=== PATIENT | male | born 1945 | race Caucasian/White ===

== ENCOUNTER → 2018-01-03 | Outpatient (CLI) | payer OTHER ==
[~2018-01-03] MED LIST: FELO5TAB PO; FRS/40 PO; IPRA-64 INH; LEVO50TA6 PO; LISI40TA PO; METO-217 PO; OXGN; SIMV40TA2 PO; WARF4TAB8 PO
[2018-01-03 11:59] LABS: BASO % 0.3 %; BASO ABS # 0.02 K/uL (0-0.2); EOS % 4.3 %; EOS ABS # 0.28 K/uL (0-0.5); HEMATOCRIT 45.7 % (42-52); HEMOGLOBIN 15.1 g/dL (14.0-18.0); IG# 0.03 K/uL (0.00-0.02); LYMPH % 17.2 %; LYMPH ABS # 1.12 K/uL (1.2-3.4); MEAN CORPUSCULAR HEMOGLOBIN 31.1 pg (25-34); MONO % 13.9 %; MONO ABS # 0.91 K/uL (0.11-0.59); NEUT % 63.8 %; NEUT ABS # 4.17 K/uL (1.4-6.5); PLATELET COUNT 189 K/uL (130-400); RED CELL DISTRIBUTION WIDTH CV 15.7 % (11.5-14.5); RED CELL DISTRIBUTION WIDTH SD 53.8 fL (36.4-46.3); WHITE BLOOD COUNT 6.53 K/uL (4.8-10.8)
[2018-01-03 12:08] LABS: INR 2.3 (0.9-1.1); PTT PATIENT 40.1 SECONDS (21.0-31.0)
[2018-01-03 12:31] LABS: HEMOGLOBIN A1C 6.3 % (4.5-5.6)
[2018-01-03 12:42] LABS: BLOOD UREA NITROGEN 26 mg/dl (7-18); CALCIUM 8.3 mg/dl (8.5-10.1); CARBON DIOXIDE 28 mmol/L (21-32); CREATININE 1.66 mg/dl (0.60-1.40); GLUCOSE 86 mg/dl (70-99); POTASSIUM 4.3 mmol/L (3.5-5.1); SODIUM 137 mmol/L (136-145)
== END | disposition home or self-care (01) ==
LOC: C.LAB 08:00
PROVIDERS: ATTEND Orthopaedic Surgery
DX: Z01.818 Encounter for other preprocedural examination (principal)

== ENCOUNTER 2021-12-13 17:40 | Observation (INO) ==
--- NOTE | 2021-12-13 17:50 | ED Triage Note ---
Date of Service December 13, 2021 History of Present Illness This patient was briefly evaluated while in triage. An abbreviated physical exam was performed. This patient is a 76-year-old Male with cough and dyspnea since saturday. No chest pain. Hx COPD. Physical Exam GENERAL: 76 year old male. In no acute distress. He is coughing. SKIN: No lesions or rashes. HEART: Irregular rate and rhythm. LUNGS: Clear to auscultation. ABDOMEN: Bowel sounds normoactive. No guarding or rigidity. No tenderness of palpation. NEURO: Alert and oriented. No deficits. MUSCULOSKELETAL: No deformities to inspection of the extremities. Bilat ext edema noted. PSYCH: Patient is pleasant and answers all questions appropriately. Initial orders for labs and / or imaging were placed and patient was placed in the waiting area until a bed is available. Please see further documentation for the full ED course.
[2021-12-13 18:26] LABS: Basophils # (auto) 0.04 K/uL (0-0.2); Basophils % (auto) 0.8 %; Eosinophils # (auto) 0.35 K/uL (0-0.50); Eosinophils % (auto) 6.9 %; Hematocrit (blood only) 41.9 % (40.1-51.0); Hemoglobin 13.1 g/dl (14.0-18.0); Immature Granulocytes # (auto) 0.02 K/uL (0.00-0.02); Immature Granulocytes % (auto) 0.4 %; Lymphocytes # (auto) 0.79 K/uL (1.2-3.4); Lymphocytes % (auto) 15.6 %; Mean Corpuscular Hemoglobin 29.4 pg (25.0-34.0); Mean Corpuscular Hgb Conc 31.3 g/dL (32.0-36.0); Mean Corpuscular Volume 94.2 fL (80.0-100.0); Mean Platelet Volume 10.1 fL (9.4-12.4); Monocytes # (auto) 0.95 K/uL (0.24-0.82); Monocytes % (auto) 18.7 %; Neutrophils # (auto) 2.92 K/uL (1.4-6.5); Neutrophils % (auto) 57.6 %; Platelet Count 142 K/uL (130-400); RDW Standard Deviation 65.1 fL (36.4-46.3); Red Blood Count 4.45 M/uL (4.63-6.08); White Blood Count 5.07 K/ul (4.8-10.8)
[2021-12-13 18:37] LABS: INR 1.7 (0.9-1.1); Partial Thromboplastin Ratio 1.2; Partial Thromboplastin Time 32.7 Seconds (21.0-31.0); Prothrombin Time 17.3 Seconds (9.0-12.0)
--- NOTE | 2021-12-13 18:49 | XRay Report ---
XR chest 1V portable HISTORY: Dyspnea, cough COMPARISON: None. FINDINGS: No pneumothorax. Trace right pleural effusion. The heart is mildly enlarged. There is diffu se interstitial/vascular thickening likely representing mild interstitial pulmonary edema. Hazy appea marissa to the lungs could be due to the pulmonary edema or a viral pneumonia. IMPRESSION: Cardiomegaly with mild interstitial pulmonary edema and a trace right pleural effusion. Hazy appearan ce to the lungs could be due to the suspected pulmonary edema or possibly a viral pneumonia. ACT 112: Negative or not required by law. Electronically signed by: Osei Mcdermott M.D. 12/13/2021 6:48 PM
[2021-12-13 18:50] LABS: Alanine Aminotransferase 20 U/L (7-52); Albumin Globulin Ratio 0.9 (0.9-2); Albumin Level 3.7 gm/dl (3.4-5.0); Alkaline Phosphatase 106 U/L (34-104); Anion Gap 8 (3-11); Aspartate Aminotransferase 28 U/L (13-39); BUN Creatinine Ratio 17.8 (10-20); Bilirubin,Total 0.7 mg/dl (0.2-1.0); Blood Urea Nitrogen 35 mg/dl (6-23); Calcium 8.7 mg/dl (8.5-10.1); Carbon Dioxide 26 mmol/L (21-32); Chloride 106 mmol/L (98-107); Est GFR (African American) 37.2 ml/min; Est GFR (Non-African American) 32.1 ml/min; Glucose 92 mg/dl (70-99(Fasting)); Magnesium 2.4 mg/dl (1.7-2.4); Potassium 4.9 mmol/L (3.5-5.1); Sodium 140 mmol/L (136-145); Total Protein 7.7 gm/dl (6.0-8.3)
[2021-12-13 18:55] LABS: Troponin I High Sensitivity 16.1 pg/ml (0-20)
[2021-12-13] MEDS ORDERED: BUMETANIDE 1 MG in SYRINGE 0 ML IV STA (19:07)
[2021-12-13] MEDS ORDERED: ALBUT/IPRATROP 3MG/0.5MG NEB 3 ML VIAL NEB STA (19:07)
[2021-12-13 19:24] LABS: Adenovirus PCR Not Detected (NotDetected); Bordetella parapertussis PCR Not Detected (NotDetected); Bordetella pertussis PCR Not Detected (NotDetected); Chlamydia pneumoniae PCR Not Detected (NotDetected); Coronavirus 229E PCR Not Detected (NotDetected); Coronavirus CoV-2 (COVID19)PCR Not Detected (NotDetected); Coronavirus HKU1 PCR Not Detected (NotDetected); Coronavirus NL63 PCR Not Detected (NotDetected); Coronavirus OC43PCR Not Detected (NotDetected); Human Metapneumovirus PCR Not Detected (NotDetected); Influenza A PCR Not Detected (NotDetected); Influenza B PCR Not Detected (NotDetected); Mycoplasma pneumoniae PCR Not Detected (NotDetected); Parainfluenza Virus 1 PCR Not Detected (NotDetected); Parainfluenza Virus 2 PCR Not Detected (NotDetected); Parainfluenza Virus 4 PCR Not Detected (NotDetected); Respiratory Syncytial VirusPCR Not Detected (NotDetected); Rhinovirus/Enterovirus PCR Not Detected (NotDetected)
--- NOTE | 2021-12-13 19:26 | Emergency Department Note ---
Impression & Plan SOB (shortness of breath), CHF (congestive heart failure), Fluid overload, Acute bronchitis ED Provider Note NAME: JAVIER BHATT AGE: 76 SEX: M : 1945 ARRIVES VIA: Walk-In INFORMANT: [Patient] ED PROVIDER(S): [John Means MD] CHIEF COMPLAINT: Short of breath HISTORY OF PRESENT ILLNESS: The patient is a 76-year-old male who presents with increasing dyspnea. He is at the point where he can only take a few steps and has to stop and catch his breath. The patient states that he has gained 30 pounds in about 6 weeks and his legs are much more swollen, his abdomen seems swollen. He is coughing. He cannot lay flat at nighttime. There has been no fever, no abdominal pain or chest pain. He states he is already on diuretics. The patient states he has heard himself wheeze a few times. He was told once that he might have a touch of COPD. REVIEW OF SYSTEMS: See HPI for pertinent positives and negatives. A total of ten systems were reviewed and were otherwise negative. PMHx/PSHx: See Below SOCIAL HISTORY: See Below. PHYSICAL EXAM: GENERAL: Patient is in no acute distress. HEENT: No acute trauma, normocephalic atraumatic, mucous membranes moist, no nasal congestion, no scleral icterus. NECK: No stridor, no adenopathy, no meningismus, trachea is midline. LUNGS: Moist cough noted. Diminished breath sounds bilaterally, he does have scattered crackles in both lower lungs. No obvious respiratory distress. HEART: Heart tones are distant but his rhythm seems regular, I hear no obvious murmur. Regular rate. ABDOMEN: Soft, nontender, bowel sounds positive, no peritonitis. Distended abdomen. EXTREMITIES: No cyanosis. He has moderate bilateral pedal edema, there are some chronic skin changes. NEUROLOGIC: Oriented x 3, no acute motor or sensory deficits, no focal weakness. SKIN: No rash, no jaundice, no diaphoresis. DIFFERENTIAL DIAGNOSIS: CHF, bronchitis, pneumonia, exacerbation of COPD, anemia, VT, electrolyte imbalance, fluid overload, renal or liver failure, among others. EMERGENCY DEPARTMENT COURSE/PROCEDURES: ECG: Indication was shortness of breath. The ECG shows what appears to be atrial fibrillation with a fairly regular rhythm. The rate is 76. There is an old anterior septal infarct. No ST elevation, no PVCs. The QTc is 450. Continuous Cardiac Monitoring: An order was placed for continuous cardiac monitoring. The monitor shows a rate of 69 with atrial fibrillation. MEDICAL DECISION MAKING: There is no leukocytosis. A mild anemia was noted. There was a normal platelet count. INR was elevated at 1.7 consistent with his Coumadin use. Creatinine was elevated at 1.97. The creatinine elevation is at baseline for the patient. No significant electrolyte abnormality in need of emergent correction. No concerning liver enzyme elevation. ECG shows atrial fibrillation without acute ischemia. Cardiac enzyme testing x1 is not consistent with acute cardiac injury. The patient appeared to be in euthyroid state. Chest film does suggest CHF, no pneumonia. BNP is elevated consistent with fluid overload. Respiratory bio fire testing showed parainfluenza 3. The patient presents short of breath. He appeared to be in heart failure by history, exam and x-ray. Laboratory testing also suggested fluid overload. He was given a DuoNeb. He received 1 mg of IV Bumex. The patient is going to be hospitalized for his fluid overload and CHF. He has gained 30 pounds of fluid it seems. He will require IV diuresis. The parainfluenza virus infection has compounded his breathing issue and situation today. I did speak with the patient and case management. The on-call [facility] was consulted. Past Med/Surg History Medical History Atrial fibrillation Benign prostatic hyperplasia without lower urinary tract symptoms Chronic kidney disease Coronary arteriosclerosis Extrinsic asthma without status asthmaticus History of umbilical hernia Hyperlipemia Hypertension Hypothyroid Impotence of organic origin Obesity Obstructive sleep apnea Osteoarthritis of lower extremity Peripheral venous insufficiency Persistent microalbuminuria associated with type 2 diabetes mellitus Renal cell carcinoma Type 2 diabetes mellitus Umbilical hernia Surgical History History of hernia surgery History of kidney removal S/P cataract extraction S/P umbilical hernia repair, follow-up exam Social History Smoking Status: Former smoker Tobacco Type: Cigarettes and Smokeless Tobacco (Dip or Chew) packs per day: 0.5; Years Smoked: 1; Second Hand Exposure: No; Do You Dip or Chew Tobacco: No; Tobacco Cessation Education Requested by Patient: No Hx Alcohol Use: No Hx Substance Use: No Preferred Language: Welsh Communication Ability: Effective Visual Impairment: No Limitations Hearing Ability: Normal Code Enforcement Officer Required: No Beliefs That Will Affect Care: None marital status: Current Living Situation: Significant Other current occupational status: retired Other Information That Helps Us Care for You: No Feels Safe at Home: Yes Safety Concerns: Feels Safe At This Time Assistive Devices: BiPap, Cane, Oxygen - at Night and Walker Allergies Allergies Allergy/AdvReac Type Severity Reaction Status Date / Time amlodipine [From Norvasc] Allergy Unknown Unknown Verified 11/06/21 10:09 atorvastatin [From Lipitor] Allergy Unknown Unknown Verified 11/06/21 10:09 formoterol [From Dulera] Allergy Unknown sore throat Verified 11/06/21 10:09 mometasone furoate Allergy Unknown sore throat Verified 11/06/21 10:09 [From Dulera] adhesive tape AdvReac Intermediate Rash Verified 11/06/21 10:09 Home Meds Home Medications Medication Instructions Recorded Confirmed levothyroxine 50 mcg capsule 50 mcg PO QAM 09/04/18 12/13/21 warfarin 2 mg tablet 2 mg PO 2XWK 10/09/18 11/06/21 warfarin 4 mg tablet 4 mg PO 5XWK 10/09/18 11/06/21 hydralazine 50 mg tablet 50 mg PO BID 05/14/20 12/13/21 allopurinol 100 mg tablet 100 mg PO DAILY 05/04/21 12/13/21 furosemide 40 mg tablet 40 mg PO DAILY 05/04/21 12/13/21 gabapentin 300 mg capsule 300 mg PO DAILY 06/01/21 12/13/21 rosuvastatin 20 mg tablet (Crestor) 20 mg PO DAILY 06/15/21 11/06/21 empagliflozin 10 mg tablet 10 mg PO DAILY 09/29/21 12/13/21 (Jardiance) metoprolol succinate 100 mg 100 mg PO DAILY 09/29/21 12/13/21 tablet,extended release 24 hr oxcarbazepine 150 mg tablet 450 mg PO AMPM 09/29/21 12/13/21 Previous Rx's Medication Instructions Recorded sildenafil 100 mg tablet 100 mg PO DAILY PRN sexual 11/06/21 activity #30 tabs finasteride 5 mg tablet 5 mg PO DAILY #90 tabs 11/14/21 tamsulosin 0.4 mg capsule 0.4 mg PO DAILY #30 caps 11/29/21 Results & Data (ED) Vital Signs Vital Signs - 24 hr 12/13/21 17:48 Temperature 36.7 C Temperature Source Temporal Artery Scan Pulse Rate 69 Respiratory Rate 22 Respiratory Effort / Characteristics Non-Labored Respiratory Depth Normal Respiratory Pattern Regular Blood Pressure 180/87 H Blood Pressure Mean 118 Pulse Oximetry 95 Oxygen Delivery Method Room Air Sepsis Recent Fever Within 48 Hours No Sepsis New/Unexplained Change in Mental Status N/A Sepsis Action Taken by Nursing No Action Required Home Medications Current Medication List: was personally reviewed by me Laboratory Data Attestation: I reviewed the patient's lab results. Result diagrams: 12/13/21 18:13 12/13/21 18:13 Lab Results 12/13/21 12/13/21 12/13/21 Range/Units 18:13 18:13 18:13 WBC 5.07 (4.8-10.8) K/ul RBC 4.45 L (4.63-6.08) M/uL Hgb 13.1 L (14.0-18.0) g/dl Hct 41.9 (40.1-51.0) % MCV 94.2 (80.0-100.0) fL MCH 29.4 (25.0-34.0) pg MCHC 31.3 L (32.0-36.0) g/dL RDW Std Deviation 65.1 H (36.4-46.3) fL RDW Coeff of Kilo 19.0 H (11.5-14.5) % Plt Count 142 (130-400) K/uL MPV 10.1 (9.4-12.4) fL Immature Gran % (Auto) 0.4 % Neut % (Auto) 57.6 % Lymph % (Auto) 15.6 % [place] % (Auto) 18.7 % Eos % (Auto) 6.9 % Baso % (Auto) 0.8 % Neut # (Auto) 2.92 (1.4-6.5) K/uL Lymph # (Auto) 0.79 L (1.2-3.4) K/uL [place] # (Auto) 0.95 H (0.24-0.82) K/uL Eos # (Auto) 0.35 (0-0.50) K/uL Baso # (Auto) 0.04 (0-0.2) K/uL Immature Gran # (Auto) 0.02 (0.00-0.02) K/uL PT 17.3 H (9.0-12.0) Seconds INR 1.7 H (0.9-1.1) APTT 32.7 H (21.0-31.0) Seconds PTT Ratio 1.2 Sodium 140 (136-145) mmol/L Potassium 4.9 (3.5-5.1) mmol/L Chloride 106 (98-107) mmol/L Carbon Dioxide 26 (21-32) mmol/L Anion Gap 8 (3-11) BUN 35 H (6-23) mg/dl Creatinine 1.97 H (0.6-1.4) mg/dl Est Cr Clr Drug Dosing Not Reportable Est GFR ( Amer) 37.2 ml/min Est GFR (Non-Af Amer) 32.1 ml/min BUN/Creatinine Ratio 17.8 (10-20) Glucose 92 (70-99(Fasting)) mg/dl Calcium 8.7 (8.5-10.1) mg/dl Magnesium 2.4 (1.7-2.4) mg/dl Total Bilirubin 0.7 (0.2-1.0) mg/dl AST 28 (13-39) U/L ALT 20 (7-52) U/L Alkaline Phosphatase 106 H (34-104) U/L Troponin I High Sens 16.1 (0-20) pg/ml B-Natriuretic Peptide (0-100) pg/ml Total Protein 7.7 (6.0-8.3) gm/dl Albumin 3.7 (3.4-5.0) gm/dl Globulin 4.0 (2.5-4.0) gm/dl Albumin/Globulin Ratio 0.9 (0.9-2) TSH (0.300-4.500) uIu/ml Adenovirus (PCR) (NotDetected) B. pertussis DNA (PCR) (NotDetected) B.parapertussis DNA PCR (NotDetected) C. pneumoniae DNA (PCR) (NotDetected) Coronavirus OC43 (PCR) (NotDetected) Coronavirus HKU1 (PCR) (NotDetected) Coronavirus 229E (PCR) (NotDetected) SARS-CoV-2 (PCR) (NotDetected) Coronavirus NL63 (PCR) (NotDetected) Human Metapneumovir PCR (NotDetected) Influenza Type A (PCR) (NotDetected) Influenza Type B (PCR) (NotDetected) M. pneumoniae (PCR) (NotDetected) Parainfluenza 1 (PCR) (NotDetected) Parainfluenza 2 (PCR) (NotDetected) Parainfluenza 3 (PCR) (NotDetected) Parainfluenza 4 (PCR) (NotDetected) RSV (PCR) (NotDetected) Entero/Rhino (PCR) (NotDetected) 12/13/21 12/13/21 12/13/21 Range/Units 18:13 18:13 18:13 WBC (4.8-10.8) K/ul RBC (4.63-6.08) M/uL Hgb (14.0-18.0) g/dl Hct (40.1-51.0) % MCV (80.0-100.0) fL MCH (25.0-34.0) pg MCHC (32.0-36.0) g/dL RDW Std Deviation (36.4-46.3) fL RDW Coeff of Kilo (11.5-14.5) % Plt Count (130-400) K/uL MPV (9.4-12.4) fL Immature Gran % (Auto) % Neut % (Auto) % Lymph % (Auto) % [place] % (Auto) % Eos % (Auto) % Baso % (Auto) % Neut # (Auto) (1.4-6.5) K/uL Lymph # (Auto) (1.2-3.4) K/uL [place] # (Auto) (0.24-0.82) K/uL Eos # (Auto) (0-0.50) K/uL Baso # (Auto) (0-0.2) K/uL Immature Gran # (Auto) (0.00-0.02) K/uL PT (9.0-12.0) Seconds INR (0.9-1.1) APTT (21.0-31.0) Seconds PTT Ratio Sodium (136-145) mmol/L Potassium (3.5-5.1) mmol/L Chloride (98-107) mmol/L Carbon Dioxide (21-32) mmol/L Anion Gap (3-11) BUN (6-23) mg/dl Creatinine (0.6-1.4) mg/dl Est Cr Clr Drug Dosing Est GFR ( Amer) ml/min Est GFR (Non-Af Amer) ml/min BUN/Creatinine Ratio (10-20) Glucose (70-99(Fasting)) mg/dl Calcium (8.5-10.1) mg/dl Magnesium (1.7-2.4) mg/dl Total Bilirubin (0.2-1.0) mg/dl AST (13-39) U/L ALT (7-52) U/L Alkaline Phosphatase (34-104) U/L Troponin I High Sens (0-20) pg/ml B-Natriuretic Peptide 330 H (0-100) pg/ml Total Protein (6.0-8.3) gm/dl Albumin (3.4-5.0) gm/dl Globulin (2.5-4.0) gm/dl Albumin/Globulin Ratio (0.9-2) TSH 3.717 (0.300-4.500) uIu/ml Adenovirus (PCR) Not Detected (NotDetected) B. pertussis DNA (PCR) Not Detected (NotDetected) B.parapertussis DNA PCR Not Detected (NotDetected) C. pneumoniae DNA (PCR) Not Detected (NotDetected) Coronavirus OC43 (PCR) Not Detected (NotDetected) Coronavirus HKU1 (PCR) Not Detected (NotDetected) Coronavirus 229E (PCR) Not Detected (NotDetected) SARS-CoV-2 (PCR) Not Detected (NotDetected) Coronavirus NL63 (PCR) Not Detected (NotDetected) Human Metapneumovir PCR Not Detected (NotDetected) Influenza Type A (PCR) Not Detected (NotDetected) Influenza Type B (PCR) Not Detected (NotDetected) M. pneumoniae (PCR) Not Detected (NotDetected) Parainfluenza 1 (PCR) Not Detected (NotDetected) Parainfluenza 2 (PCR) Not Detected (NotDetected) Parainfluenza 3 (PCR) DETECTED A* (NotDetected) Parainfluenza 4 (PCR) Not Detected (NotDetected) RSV (PCR) Not Detected (NotDetected) Entero/Rhino (PCR) Not Detected (NotDetected) Administered Medications Hydralazine HCl (Hydralazine Tab 50 Mg Tab) 50 mg PO BID VI Stop: 01/12/22 22:17 Last Admin: 12/13/21 23:09 Dose: 50 mg Documented By: CF Insulin Aspart (Insulin Aspart Per Unit) 0 units SC ACHS VI Stop: 01/12/22 22:17 Last Admin: 12/13/21 23:07 Dose: Not Given Documented By: CF Oxcarbazepine (Oxcarbazepine 150 Mg Tablet) 450 mg PO BID VI Stop: 01/12/22 22:17 Last Admin: 12/13/21 23:09 Dose: 450 mg Documented By: CARLOS ENRIQUE Discontinued Medications Albuterol (Albut/Ipratrop 3mg/0.5mg Neb 3 Ml Vial) 3 ml NEB NOW STA; Protocol Stop: 12/13/21 19:08 Last Admin: 12/13/21 19:22 Dose: 3 ml Documented By: EMIL Furosemide (Furosemide 40 Mg/4 Ml Vial) 60 mg IV ONE ONE Stop: 12/13/21 19:43 Last Admin: 12/13/21 20:05 Dose: 60 mg Documented By: EMIL Bumetanide 1 mg/ Syringe 4 mls @ 4 mls/min IV NOW STA Stop: 12/13/21 19:08 Last Admin: 12/13/21 20:05 Dose: Not Given Documented By: EMIL Imaging Data Radiologist's Impression: Chest X-Ray 12/13/21 17:51 XR chest 1V portable HISTORY: Dyspnea, cough COMPARISON: None. FINDINGS: No pneumothorax. Trace right pleural effusion. The heart is mildly enlarged. There is diffuse interstitial/vascular thickening likely representing mild interstitial pulmonary edema. Hazy appearance to the lungs could be due to the pulmonary edema or a viral pneumonia. IMPRESSION: Cardiomegaly with mild interstitial pulmonary edema and a trace right pleural effusion. Hazy appearance to the lungs could be due to the suspected pulmonary edema or possibly a viral pneumonia. ACT 112: Negative or not required by law. Electronically signed by: Osei Mcdermott M.D. 12/13/2021 6:48 PM Discharge Plan Visit Data Chief Complaint: Shortness of Breath/Dyspnea Stated Complaint: SOB, COUGHING, WHEEZING, CELLULITIS BOTH LEGS ED Provider: John Means Discharge Problem: SOB (shortness of breath), CHF (congestive heart failure), Fluid overload, Acute bronchitis Patient Disposition: Admitted As Inpatient Condition: Fair Discharge Instructions Interventions: ED Discharge Assessment Last Done: 12/13/21 21:43
[2021-12-13 19:28] LABS: Parainfluenza Virus 3 PCR DETECTED (NotDetected)
[2021-12-13] MEDS ORDERED: FUROSEMIDE 40 MG/4 ML VIAL IV ONE (19:42)
--- NOTE | 2021-12-13 20:32 | History & Physical Report ---
Date of Service December 13, 2021 Assessment & Plan (1) CHF exacerbation: Plan: Acute on Chronic heart failure exacerbation - Edema bilaterally lower extremities up to midabdomen - Pulmonary congestion with pulmonary effusions - 50 pound weight gain reported over past month - Continue with IV duresis- Lasix 60mg IV now then every 6 hours - follow renal function adjust therapy as needed goal 1-2Liters negative - Troponin negative - ECHO in am to evaluate EF and for any RWMA that are new. - not hypoxic and not tachycepneic (2) Hyperlipemia: Plan: Continue statin (3) Hypertension: Plan: Continue Hydralazine 50mg PO BID Metoprolol (4) Atrial fibrillation, permanent: Plan: Continue Metoprolol - INR 1.7 - Patient reports low last week so he was taking 8 then 6 mg and is now on 4mg PO daily (5) Chronic kidney disease, stage III (moderate): Plan: Chronic with solitary kidney following Rt. Nephrectomy for RCC 2013 - [employer] 1.97 and below his baseline - electrolytes stable (6) Solitary kidney, acquired: Plan: As above (7) ANNAMARIE (obstructive sleep apnea): Plan: CPAP at night - He thinks he is on 6 CM H20 can't recall - WIll place on AutoPAP while in house History of Present Illness Primary Care Provider: Celine Mary 76 YOM with medical history of: Renal cell carcinoma with solitary kidney, Right nephrectomy(2013), Afib(permanent on warfarin), HTN, HLD, CKD III, HFpEF (2020 EF 50%), chronic cough, Mitral Regurge, DMII, ANNAMARIE (CPAP),obesity, CKD, BPH. Patient comes to the EMD today for increased dyspnea, weight gain, and swelling of his legs. Patient states that this has been ongoing for the past month and progressively getting worse. He attempted to get in touch with his PCP over the past 2 weeks but without any success. He normally takes 40mg of Lasix a day but for the past 3 days he took 60mg of Lasix which he noted had helped with his swelling. Patient states that he has been more dyspneic and unable to lay flat has been sleeping in his recliner. He states he is up 50 pounds over the past month. He denies any chest pain with this or any dietary indiscretions. Patient states that he has had his current cough for over 30 years and is worse in the morning where he coughs up thick sputum with orange flecks in it and clears through the day. He reports that earlier in the month he had a MRI of his heart and CT scan of his chest completed at [facility]. He has not had any report from these scans. He is edematous up to his mid abdomen, is rate controlled with his afib and is doing well on room air. His Pa raInfluenza e is positive on admission. Will provide 60mg IV Lasix now. Admit to PCU for diuresing, obtain ECHO. COVID TEST: NEGATIVE Allergies Allergy/AdvReac Type Severity Reaction Status Date / Time amlodipine [From Norvasc] Allergy Unknown Unknown Verified 11/06/21 10:09 atorvastatin [From Lipitor] Allergy Unknown Unknown Verified 11/06/21 10:09 formoterol [From Dulera] Allergy Unknown sore throat Verified 11/06/21 10:09 mometasone furoate Allergy Unknown sore throat Verified 11/06/21 10:09 [From Dulera] adhesive tape AdvReac Intermediate Rash Verified 11/06/21 10:09 Home Medications Medication Instructions Recorded Confirmed Type levothyroxine 50 mcg capsule 50 mcg PO QAM 09/04/18 11/06/21 History warfarin 2 mg tablet 2 mg PO 2XWK 10/09/18 11/06/21 History warfarin 4 mg tablet 4 mg PO 5XWK 10/09/18 11/06/21 History hydralazine 50 mg tablet 50 mg PO BID 05/14/20 11/06/21 History allopurinol 100 mg tablet 100 mg PO DAILY 05/04/21 11/06/21 History furosemide 40 mg tablet 40 mg PO DAILY 05/04/21 11/06/21 History gabapentin 300 mg capsule 300 mg PO DAILY 06/01/21 11/06/21 History rosuvastatin 20 mg tablet (Crestor) 20 mg PO DAILY 06/15/21 11/06/21 History empagliflozin 10 mg tablet 10 mg PO DAILY 09/29/21 11/06/21 History (Jardiance) metoprolol succinate 100 mg 100 mg PO DAILY 09/29/21 11/06/21 History tablet,extended release 24 hr oxcarbazepine 150 mg tablet 450 mg PO AMPM 09/29/21 11/06/21 History sildenafil 100 mg tablet 100 mg PO DAILY PRN sexual 11/06/21 11/06/21 Rx activity #30 tabs finasteride 5 mg tablet 5 mg PO DAILY #90 tabs 11/14/21 Rx tamsulosin 0.4 mg capsule 0.4 mg PO DAILY #30 caps 11/29/21 11/29/21 Rx Past Med/Surg History Medical History Atrial fibrillation Benign prostatic hyperplasia without lower urinary tract symptoms Chronic kidney disease Coronary arteriosclerosis Extrinsic asthma without status asthmaticus History of umbilical hernia Hyperlipemia Hypertension Hypothyroid Impotence of organic origin Obesity Obstructive sleep apnea Osteoarthritis of lower extremity Peripheral venous insufficiency Persistent microalbuminuria associated with type 2 diabetes mellitus Renal cell carcinoma Type 2 diabetes mellitus Umbilical hernia Surgical History History of hernia surgery History of kidney removal S/P cataract extraction S/P umbilical hernia repair, follow-up exam Social History Smoking Status: Current every day smoker Tobacco Type: Cigarettes and Smokeless Tobacco (Dip or Chew) packs per day: 0.5; Years Smoked: 1; Hx Alcohol Use: Yes Alcohol type: beer and hard liquor Hx Substance Use: No Preferred Language: Pashto Communication Ability: Effective Visual Impairment: No Limitations Hearing Ability: Normal Aircraft Refueller Required: No Beliefs That Will Affect Care: None marital status: Current Living Situation: Spouse current occupational status: retired Feels Safe at Home: Yes Review of Systems Review of Systems: REVIEW OF SYSTEMS: Constitutional: No fever, sweats or chills Eyes: No diplopia, no worsening or blurred vision ENT: normal hearing, no trouble swallowing Respiratory: (+) cough, sputum, dyspnea at rest or on exertion Cardiovascular: No chest pain, tightness or palpitations Abdomen: No pain, nausea, vomiting, diarrhea or constipation Musculoskeletal: (+) leg swelling, No joint pain, calf pain, swelling Neurologic: No weakness, numbness/tingling, or balance problems Psychiatric: No anxiety or depression Skin: (+) chronic venous insufficiency Physical Exam Physical Exam: PHYSICAL EXAM: General: awake, alert, no apparent distress Head: Normocephalic, atraumatic ENT: PERRL, EOMI, no pharyngeal exudate, mucous membranes moist Neuro: AAO x 3, speech clear and appropriate, strength intact bilaterally 5/5, sensation intact and equal all extremities and dermatomes, no pronator drift Chest: equal rise and fall of the chest, no accessory muscle use, no heaves or thrills, scattered crackles throughout Cardiac: irregular rate and rhythm, telemetry reviewed-afib, skin warm dry, cap refill <3 seconds, peripheral pulses +2, JVD, grade II systolic murmur, JVD, 3+ edema bilaterally up to mid abdomen and sacrum. GI: NABS x 4 quadrants, soft, nontender to palpation, no rebound, guarding or tenderness : Dean placed for diuresis, Psych: Normal mood and affect Skin: venous congestion with blistering to lower extremities, erythema likely secondary to edema. Results & Data Results & Data ([facility]) Vital Signs (Past 12 Hours) Vital Signs Temp Pulse Resp BP Pulse Ox O2 Del Method 12/13/21 17:48 36.7 C 69 22 180/87 H 95 Room Air Laboratory Results Abnormal lab results 12/13/21 12/13/21 12/13/21 Range/Units 18:13 18:13 18:13 RBC 4.45 L (4.63-6.08) M/uL Hgb 13.1 L (14.0-18.0) g/dl MCHC 31.3 L (32.0-36.0) g/dL RDW Std Deviation 65.1 H (36.4-46.3) fL RDW Coeff of Kilo 19.0 H (11.5-14.5) % Lymph # (Auto) 0.79 L (1.2-3.4) K/uL [place] # (Auto) 0.95 H (0.24-0.82) K/uL PT 17.3 H (9.0-12.0) Seconds INR 1.7 H (0.9-1.1) APTT 32.7 H (21.0-31.0) Seconds BUN 35 H (6-23) mg/dl Creatinine 1.97 H (0.6-1.4) mg/dl Alkaline Phosphatase 106 H (34-104) U/L B-Natriuretic Peptide (0-100) pg/ml Parainfluenza 3 (PCR) (NotDetected) 12/13/21 12/13/21 Range/Units 18:13 18:13 RBC (4.63-6.08) M/uL Hgb (14.0-18.0) g/dl MCHC (32.0-36.0) g/dL RDW Std Deviation (36.4-46.3) fL RDW Coeff of Kilo (11.5-14.5) % Lymph # (Auto) (1.2-3.4) K/uL [place] # (Auto) (0.24-0.82) K/uL PT (9.0-12.0) Seconds INR (0.9-1.1) APTT (21.0-31.0) Seconds BUN (6-23) mg/dl Creatinine (0.6-1.4) mg/dl Alkaline Phosphatase (34-104) U/L B-Natriuretic Peptide 330 H (0-100) pg/ml Parainfluenza 3 (PCR) DETECTED A* (NotDetected) Diagnostic Findings Chest X-Ray 12/13/21 17:51 XR chest 1V portable HISTORY: Dyspnea, cough COMPARISON: None. FINDINGS: No pneumothorax. Trace right pleural effusion. The heart is mildly enlarged. There is diffuse interstitial/vascular thickening likely representing mild interstitial pulmonary edema. Hazy appearance to the lungs could be due to the pulmonary edema or a viral pneumonia. IMPRESSION: Cardiomegaly with mild interstitial pulmonary edema and a trace right pleural effusion. Hazy appearance to the lungs could be due to the suspected pulmonary edema or possibly a viral pneumonia. ACT 112: Negative or not required by law. Electronically signed by: Osei Mcdermott M.D. 12/13/2021 6:48 PM Medications Administered Home Medications levothyroxine 50 mcg capsule 50 mcg PO QAM 09/04/18 [History Confirmed 11/06/21] warfarin 2 mg tablet 2 mg PO 2XWK 10/09/18 [History Confirmed 11/06/21] warfarin 4 mg tablet 4 mg PO 5XWK 10/09/18 [History Confirmed 11/06/21] hydralazine 50 mg tablet 50 mg PO BID 05/14/20 [History Confirmed 11/06/21] cholecalciferol (vitamin D3) 125 mcg (5,000 unit) capsule 125 mcg PO DAILY 04/25/21 [History Confirmed 11/06/21] allopurinol 100 mg tablet 100 mg PO DAILY 05/04/21 [History Confirmed 11/06/21] furosemide 40 mg tablet 40 mg PO DAILY 05/04/21 [History Confirmed 11/06/21] gabapentin 300 mg capsule 300 mg PO DAILY 06/01/21 [History Confirmed 11/06/21] rosuvastatin 20 mg tablet (Crestor) 20 mg PO DAILY 06/15/21 [History Confirmed 11/06/21] empagliflozin 10 mg tablet (Jardiance) 10 mg PO DAILY 09/29/21 [History Confirmed 11/06/21] metoprolol succinate 100 mg tablet,extended release 24 hr 100 mg PO DAILY 09/29/21 [History Confirmed 11/06/21] oxcarbazepine 150 mg tablet 450 mg PO AMPM 09/29/21 [History Confirmed 11/06/21] sildenafil 100 mg tablet 100 mg PO DAILY PRN sexual activity #30 tabs 11/06/21 [Rx Confirmed 11/06/21] finasteride 5 mg tablet 5 mg PO DAILY #90 tabs 11/14/21 [Rx] amoxicillin 500 mg-potassium clavulanate 125 mg tablet (Augmentin) 1 tab PO BID 10 days #20 tabs 11/16/21 [Rx] tamsulosin 0.4 mg capsule 0.4 mg PO DAILY #30 caps 11/29/21 [Rx Confirmed 11/29/21] Discontinued Medications Albuterol (Albut/Ipratrop 3mg/0.5mg Neb 3 Ml Vial) 3 ml NEB NOW STA; Protocol Stop: 12/13/21 19:08 Last Admin: 12/13/21 19:22 Dose: 3 ml Documented By: EMIL Furosemide (Furosemide 40 Mg/4 Ml Vial) 60 mg IV ONE ONE Stop: 12/13/21 19:43 Last Admin: 12/13/21 20:05 Dose: 60 mg Documented By: EMIL Bumetanide 1 mg/ Syringe 4 mls @ 4 mls/min IV NOW STA Stop: 12/13/21 19:08 Last Admin: 12/13/21 20:05 Dose: Not Given Documented By: EMIL ECG Additional Comments: Atrial fibrillation Low voltage QRS Cannot rule out Anteroseptal infarct , age undetermined Abnormal ECG When compared with ECG of 23-AUG-2004 11:38, Atrial fibrillation has replaced Sinus rhythm Minimal criteria for Anteroseptal infarct are now Present Code Status & VTE Plan Code Status CODE: DNR/DNI VTE: SCDS, Warfarin VTE Prophylaxis Plan VTE Prophylaxis will be ordered: Yes PG Care Time/CCT Total # of Minutes Spent Total Time Spent with Patient: Total time spent is greater than 50% in coordination of care (as documented) at patient's floor/unit and/or counseling patient: Coding Level of Care Code 75870 Initial Inpt Care Lvl 3 Diagnoses CHF exacerbation I50.9 Hyperlipemia E78.5 Hypertension I10 Atrial fibrillation, permanent I48.21 Chronic kidney disease, stage III (moderate) N18.3 Solitary kidney, acquired Z90.5 ANNAMARIE (obstructive sleep apnea) G47.33
[2021-12-13] MEDS ORDERED: CARBOHYDRATES FOR HYPOGLYCEMIA PO PRN (22:18)
[2021-12-13] MEDS ORDERED: ACETAMINOPHEN 325 MG TAB PO PRN (22:18)
[2021-12-13] MEDS ORDERED: GLUCAGON FOR INJ 1 MG VIAL SQ PRN (22:18)
[2021-12-13] MEDS ORDERED: DEXTROSE 50% 50 ML SYRINGE IV PRN (22:18)
[2021-12-13] MEDS ORDERED: GLUCOSE 40% GEL 15 GM TUBE PO PRN (22:18)
[2021-12-13] MEDS ORDERED: GLUCOSE 10 TAB/TUBE PO PRN (22:18)
[2021-12-13] MEDS: INSULIN ASPART PER UNIT SC SCH (23:07)
[2021-12-13] MEDS: hydrALAZINE TAB 50 MG TAB PO SCH (23:09)
[2021-12-13] MEDS: OXcarbazepine 150 MG TABLET PO SCH (23:09)
[2021-12-14] MEDS ORDERED: FUROSEMIDE 40 MG/4 ML VIAL IV ONE ×2 (04:00→16:25)
[2021-12-14] MEDS ORDERED: ALBUT/IPRATROP 3MG/0.5MG NEB 3 ML VIAL NEB STA (04:48)
[2021-12-14] MEDS: LEVOTHYROXINE SODIUM 50 MCG TABLET PO SCH (05:58)
[2021-12-14 08:01] LABS: Basophils # (auto) 0.04 K/uL (0-0.2); Basophils % (auto) 0.8 %; Eosinophils # (auto) 0.24 K/uL (0-0.50); Eosinophils % (auto) 4.7 %; Hemoglobin 12.4 g/dl (14.0-18.0); Immature Granulocytes # (auto) 0.02 K/uL (0.00-0.02); Immature Granulocytes % (auto) 0.4 %; Lymphocytes % (auto) 11.7 %; Mean Corpuscular Hemoglobin 28.6 pg (25.0-34.0); Mean Corpuscular Hgb Conc 31.8 g/dL (32.0-36.0); Mean Corpuscular Volume 90.1 fL (80.0-100.0); Mean Platelet Volume 10.4 fL (9.4-12.4); Monocytes # (auto) 0.85 K/uL (0.24-0.82); Monocytes % (auto) 16.5 %; Neutrophils # (auto) 3.39 K/uL (1.4-6.5); Neutrophils % (auto) 65.9 %; Platelet Count 152 K/uL (130-400); RDW Coefficient of Variation 18.8 % (11.5-14.5); RDW Standard Deviation 61.8 fL (36.4-46.3); Red Blood Count 4.33 M/uL (4.63-6.08); White Blood Count 5.14 K/ul (4.8-10.8)
[2021-12-14 08:10] LABS: INR 1.6 (0.9-1.1); Prothrombin Time 16.7 Seconds (9.0-12.0)
[2021-12-14 08:35] LABS: BUN Creatinine Ratio 19.3 (10-20); Calcium 8.8 mg/dl (8.5-10.1); Creatinine Clr Calc Pharmacy 53.2 ml/min; Est GFR (African American) 39.6 ml/min; Est GFR (Non-African American) 34.2 ml/min; Potassium 4.2 mmol/L (3.5-5.1)
--- NOTE | 2021-12-14 08:47 | Hospitalist Progress Note ---
Date of Service December 14, 2021 Assessment & Plan (1) CHF exacerbation: Plan: Acute on Chronic diastolic heart failure exacerbation typically follows with Dr. Asencio - Edema bilaterally lower extremities up to midabdomen -Likely spurred on by his parainfluenza pneumonitis - 50 pound weight gain reported over past month -Additional dosing of Lasix given on 12/14/2021 -Kidney disease stage III - Troponin negative - ECHO preserved EF no regional wall motion abnormalities - not hypoxic and not tachypneic (2) Parainfluenza: Plan: Patient with positive parainfluenza on bio fire this may be responsible for his pulmonary symptoms and chest x-ray changes conservative supportive care will be initiated (3) Atrial fibrillation, permanent: Plan: Continue Metoprolol - INR 1.7 taking warfarin had a negative affect while taking Eliquis with significant hematuria - (4) Hyperlipemia: Plan: Continue statin (5) Hypertension: Plan: Continue Hydralazine 50mg PO BID Metoprolol (6) Chronic kidney disease, stage III (moderate): Plan: Chronic with solitary kidney following Rt. Nephrectomy for RCC 2013 - [employer] 1.97 and below his baseline - electrolytes stable (7) Solitary kidney, acquired: Plan: As above (8) ANNAMARIE (obstructive sleep apnea): Plan: CPAP at night - WIll place on AutoPAP while in house Admission and Anticipated Discharge Date Admission Date: December 13, 2021 Subjective pt states he feels improved LE edema is present worse than baseline but improved renal function stable CKD Review of Systems Review of Systems: Mild distress and fatigue no headache, no visual changes no speech or swallowing issues no chest pain, pressure or palpitations Nonproductive coughing shortness of breath is improved with held medications no abdominal pain, nausea or vomiting, diarrhea or constipation no dysuria, hematuria or frequency no focal joint pain significant lower extremity swelling no back pain, CVA tenderness or radicular pain Chronic skin changes of lower extremities consistent with stasis dermatitis no focal signs of weakness or numbness or altered sensation no complaints of anxiety or depression.. Physical Exam Physical Exam: The patient appeared well nourished and normally developed. Patient is morbidly obese with a BMI of 48.9 he weighs 360 pounds Vital signs as documented. Head exam is normocephalic atraumatic Neck is without JVD, thyromegaly, or carotid bruits. Lungs are diminished with no focal loss no rales Cardiac exam, Rhythm is regular.. No murmurs, rubs or gallops. Abdominal exam reveals normal bowel sounds, soft non tender, no masses Extremities are 2-3+ edema bilaterally Neurologic exam is alert and oriented, no focal loss of strength or sensation Skin is with chronic venous stasis changes but no open areas Psychologically is without concerns for anxiety or depression.. Results & Data Results & Data ([facility]) Vital Signs (Past 12 Hours) Vital Signs Temp Pulse Pulse Resp BP BP Pulse Ox 12/14/21 08:02 97.9 F 70 20 147/77 H 95 12/13/21 22:10 77 12/14/21 05:00 62 25 H 96 12/14/21 03:31 97.9 F 64 22 143/81 H 97 12/14/21 00:00 71 12/13/21 22:18 12/13/21 21:35 97.5 F L 76 20 156/77 H 96 12/13/21 23:54 65 24 100 12/13/21 23:23 68 24 98 12/13/21 22:00 12/13/21 22:21 97.5 F L 76 20 156/77 H 93 12/13/21 21:43 12/13/21 21:00 67 22 155/96 H 98 Pulse Ox O2 Del Method O2 Del Method O2 Flow Rate 12/14/21 08:02 Nasal Cannula 2.0 12/13/21 22:10 12/14/21 05:00 Nasal Cannula 2 12/14/21 03:31 Nasal Cannula 2 12/14/21 00:00 12/13/21 22:18 96 Room Air 12/13/21 21:35 Room Air 12/13/21 23:54 4 12/13/21 23:23 4 12/13/21 22:00 Room Air, CPAP 12/13/21 22:21 Room Air 12/13/21 21:43 Room Air 12/13/21 21:00 Room Air PG Care Time/CCT Total # of Minutes Spent Total Time Spent with Patient: Total time spent is greater than 50% in coordination of care (as documented) at patient's floor/unit and/or counseling patient: Coding Level of Care Code 62549 Subseq Hosp Care Lvl 3 Diagnoses CHF exacerbation I50.9 Parainfluenza B34.8 Atrial fibrillation, permanent I48.21 Hyperlipemia E78.5 Hypertension I10 Chronic kidney disease, stage III (moderate) N18.3 Solitary kidney, acquired Z90.5 ANNAMARIE (obstructive sleep apnea) G47.33
[2021-12-14 08:52] LABS: Magnesium 2.3 mg/dl (1.7-2.4)
[2021-12-14] MEDS: METOPROLOL SUCC 50MG EXT REL TAB PO SCH (08:54)
[2021-12-14] MEDS: GABAPENTIN 300 MG CAP PO SCH (08:54)
[2021-12-14] MEDS: TAMSULOSIN HCL 0.4 MG CAP PO SCH (08:55)
[2021-12-14] MEDS: OXcarbazepine 150 MG TABLET PO SCH ×2 (08:55→20:20)
[2021-12-14] MEDS: hydrALAZINE TAB 50 MG TAB PO SCH ×2 (08:55→20:21)
[2021-12-14] MEDS: ROSUVASTATIN CALCIUM 20 MG TAB PO SCH (08:55)
[2021-12-14] MEDS: INSULIN ASPART PER UNIT SC SCH ×4 (09:07→20:27)
[2021-12-14 10:53] LABS: Estimated Average Glucose 123 mg/dl; Hemoglobin A1C 5.9 % (4.5-5.6)
--- NOTE | 2021-12-14 11:53 | XCELERA ---
[id number]
--- NOTE | 2021-12-14 12:25 | Electrocardiogram Report ---
Test Reason : Blood Pressure : / mmHG Vent. Rate : 076 BPM Atrial Rate : 025 BPM P-R Int : 000 ms QRS Dur : 074 ms QT Int : 400 ms P-R-T Axes : 000 042 060 degrees QTc Int : 450 ms Poor data quality, interpretation may be adversely affected Probably Atrial fibrillation Low voltage QRS Cannot rule out Anteroseptal infarct , age undetermined Abnormal ECG When compared with ECG of 23-AUG-2004 11:38, Atrial fibrillation has replaced Sinus rhythm Minimal criteria for Anteroseptal infarct are now Present Confirmed by Jem Cavanaugh ([id number]) on 12/14/2021 12:25:10 PM Referred By: REFERRED SELF Confirmed By:José Manuel Cavanaugh
[2021-12-14] MEDS ORDERED: WARFARIN SOD 4 MG TAB PO SCH (16:00)
[2021-12-14] MEDS ORDERED: ALBUT/IPRATROP 3MG/0.5MG NEB 3 ML VIAL NEB PRN (19:48)
[2021-12-14] MEDS: ALBUT/IPRATROP 3MG/0.5MG NEB 3 ML VIAL NEB PRN (19:57)
[2021-12-15] MEDS: LEVOTHYROXINE SODIUM 50 MCG TABLET PO SCH (06:48)
[2021-12-15 06:56] LABS: Basophils # (auto) 0.02 K/uL (0-0.2); Basophils % (auto) 0.3 %; Eosinophils # (auto) 0.07 K/uL (0-0.50); Eosinophils % (auto) 1.1 %; Hematocrit (blood only) 40.7 % (40.1-51.0); Hemoglobin 13.2 g/dl (14.0-18.0); Immature Granulocytes # (auto) 0.01 K/uL (0.00-0.02); Immature Granulocytes % (auto) 0.2 %; Lymphocytes # (auto) 0.49 K/uL (1.2-3.4); Mean Corpuscular Hemoglobin 29.2 pg (25.0-34.0); Mean Corpuscular Hgb Conc 32.4 g/dL (32.0-36.0); Mean Platelet Volume 10.7 fL (9.4-12.4); Monocytes # (auto) 0.95 K/uL (0.24-0.82); Monocytes % (auto) 15.4 %; Neutrophils # (auto) 4.61 K/uL (1.4-6.5); Platelet Count 165 K/uL (130-400); RDW Coefficient of Variation 18.8 % (11.5-14.5); RDW Standard Deviation 60.4 fL (36.4-46.3); Red Blood Count 4.52 M/uL (4.63-6.08); White Blood Count 6.15 K/ul (4.8-10.8)
[2021-12-15 07:16] LABS: INR 1.6 (0.9-1.1); Prothrombin Time 16.7 Seconds (9.0-12.0)
[2021-12-15 07:35] LABS: BUN Creatinine Ratio 19.8 (10-20); Calcium 9.2 mg/dl (8.5-10.1); Creatinine Clr Calc Pharmacy 49.3 ml/min; Est GFR (African American) 36.1 ml/min; Est GFR (Non-African American) 31.1 ml/min; Magnesium 2.2 mg/dl (1.7-2.4)
[2021-12-15] MEDS: INSULIN ASPART PER UNIT SC SCH ×4 (08:44→20:44)
[2021-12-15] MEDS: ROSUVASTATIN CALCIUM 20 MG TAB PO SCH (10:15)
[2021-12-15] MEDS: GABAPENTIN 300 MG CAP PO SCH (10:15)
[2021-12-15] MEDS: hydrALAZINE TAB 50 MG TAB PO SCH ×2 (10:15→20:19)
[2021-12-15] MEDS: OXcarbazepine 150 MG TABLET PO SCH ×2 (10:15→20:18)
[2021-12-15] MEDS: METOPROLOL SUCC 50MG EXT REL TAB PO SCH (10:15)
[2021-12-15] MEDS: TAMSULOSIN HCL 0.4 MG CAP PO SCH ×2 (10:15→20:19)
[2021-12-15] MEDS: ALBUT/IPRATROP 3MG/0.5MG NEB 3 ML VIAL NEB PRN (14:15)
[2021-12-15] MEDS ORDERED: WARFARIN SOD 2 MG TAB PO SCH (16:00)
--- NOTE | 2021-12-15 17:14 | Hospitalist Progress Note ---
Date of Service December 15, 2021 Assessment & Plan (1) CHF exacerbation: Plan: Acute on Chronic diastolic heart failure exacerbation typically follows with Dr. Asencio - Edema bilaterally lower extremities -Likely spurred on by his parainfluenza pneumonitis - 50 pound weight gain reported over past month -Additional dosing of Lasix given on 12/14/2021 resume usual 40 mg a day on 12/16/21 -Kidney disease stage III - Troponin negative - ECHO preserved EF no regional wall motion abnormalities - not hypoxic and not tachypneic (2) Parainfluenza: Plan: Patient with positive parainfluenza on bio fire this may be responsible for his pulmonary symptoms and chest x-ray changes conservative supportive care will be initiated wheezing despite diuresis, will add serevent, keep prn nebs, oxymetry is still good on room air, check CXR on 12/16/21 (3) Atrial fibrillation, permanent: Plan: Continue Metoprolol - INR 1.7 taking warfarin had a negative affect while taking Eliquis with significant hematuria - (4) Hyperlipemia: Plan: Continue statin (5) Hypertension: Plan: Continue Hydralazine 50mg PO BID Metoprolol (6) Chronic kidney disease, stage III (moderate): Plan: Chronic with solitary kidney following Rt. Nephrectomy for RCC 2013 - [employer] 1.97 and below his baseline - electrolytes stable (7) Solitary kidney, acquired: Plan: As above (8) ANNAMARIE (obstructive sleep apnea): Plan: CPAP at night - WIll place on AutoPAP while in house Plan pt with urinary retention, usually on flomax daily increase dose to bid, proscar restarted Admission and Anticipated Discharge Date Admission Date: December 13, 2021 Subjective pt had urinary retention after diuretic, pt did req st cath for one liter, still not void afterward LE edema improved but persistent renal function stable CKD Review of Systems Review of Systems: Mild distress and fatigue no headache, no visual changes no speech or swallowing issues no chest pain, pressure or palpitations Nonproductive coughing shortness of breath is improved with held medications no abdominal pain, nausea or vomiting, diarrhea or constipation urinary retention no focal joint pain significant lower extremity swelling no back pain, CVA tenderness or radicular pain Chronic skin changes of lower extremities consistent with stasis dermatitis no focal signs of weakness or numbness or altered sensation no complaints of anxiety or depression.. Physical Exam Physical Exam: The patient appeared well nourished and normally developed. Patient is morbidly obese with a BMI of 48.9 he weighs 360 pounds Vital signs as documented. Head exam is normocephalic atraumatic Neck is without JVD, thyromegaly, or carotid bruits. Lungs are diminished with no focal loss no rales Cardiac exam, Rhythm is regular.. No murmurs, rubs or gallops. Abdominal exam reveals normal bowel sounds, soft non tender, no masses Extremities are 2+ edema bilaterally Neurologic exam is alert and oriented, no focal loss of strength or sensation Skin is with chronic venous stasis changes but no open areas Psychologically is without concerns for anxiety or depression.. Results & Data Results & Data ([facility]) Vital Signs (Past 12 Hours) Vital Signs Temp Pulse Resp BP Pulse Ox O2 Del Method 12/15/21 15:41 97.9 F 77 18 128/78 96 Room Air 12/15/21 14:15 71 20 95 Room Air 12/15/21 12:01 98.1 F 71 19 121/76 95 Room Air 12/15/21 07:32 97.7 F 89 18 152/85 H 96 Room Air PG Care Time/CCT Total # of Minutes Spent Total Time Spent with Patient: Total time spent is greater than 50% in coordination of care (as documented) at patient's floor/unit and/or counseling patient: Coding Level of Care Code 54169 Subseq Hosp Care Lvl 3 Diagnoses CHF exacerbation I50.9 Parainfluenza B34.8 Atrial fibrillation, permanent I48.21 Hyperlipemia E78.5 Hypertension I10 Chronic kidney disease, stage III (moderate) N18.3 Solitary kidney, acquired Z90.5 ANNAMARIE (obstructive sleep apnea) G47.33
[2021-12-15] MEDS: OLODATEROL HCL 2.5MCG/ACTUATION 60 PUFFS/INHALER INH SCH (18:13)
[2021-12-15] MEDS ORDERED: FINASTERIDE 5 MG TAB PO SCH (21:00)
[2021-12-16] MEDS: LEVOTHYROXINE SODIUM 50 MCG TABLET PO SCH (06:06)
[2021-12-16 07:33] LABS: Basophils # (auto) 0.04 K/uL (0-0.2); Basophils % (auto) 0.8 %; Eosinophils # (auto) 0.33 K/uL (0-0.50); Eosinophils % (auto) 6.6 %; Hematocrit (blood only) 37.5 % (40.1-51.0); Hemoglobin 12.1 g/dl (14.0-18.0); Immature Granulocytes # (auto) 0.01 K/uL (0.00-0.02); Immature Granulocytes % (auto) 0.2 %; Mean Corpuscular Hemoglobin 29.2 pg (25.0-34.0); Mean Corpuscular Hgb Conc 32.3 g/dL (32.0-36.0); Mean Corpuscular Volume 90.6 fL (80.0-100.0); Mean Platelet Volume 11.3 fL (9.4-12.4); Monocytes # (auto) 0.87 K/uL (0.24-0.82); Monocytes % (auto) 17.4 %; Neutrophils # (auto) 2.85 K/uL (1.4-6.5); Platelet Count 153 K/uL (130-400); RDW Coefficient of Variation 18.5 % (11.5-14.5); RDW Standard Deviation 60.2 fL (36.4-46.3); Red Blood Count 4.14 M/uL (4.63-6.08)
--- NOTE | 2021-12-16 07:41 | XRay Report ---
XR chest 1V portable HISTORY: Shortness of breath. COMPARISON: Chest 12/13/2021. FINDINGS: No pneumothorax. The heart remains enlarged. Mild interstitial/vascular thickening persists . There are low lung volumes. Suspect trace bilateral pleural effusions. No new focal lung consolidat ions. IMPRESSION: No change in the cardiomegaly and mild interstitial pulmonary edema. ACT 112: Negative or not required by law. Electronically signed by: Osei Mcdermott M.D. 12/16/2021 7:39 AM
[2021-12-16 07:47] LABS: INR 1.7 (0.9-1.1); Prothrombin Time 17.4 Seconds (9.0-12.0)
[2021-12-16 07:54] LABS: BUN Creatinine Ratio 21.4 (10-20); Calcium 8.5 mg/dl (8.5-10.1); Creatinine Clr Calc Pharmacy 51.9 ml/min; Est GFR (African American) 38.3 ml/min; Est GFR (Non-African American) 33.1 ml/min; Potassium 3.8 mmol/L (3.5-5.1)
[2021-12-16] MEDS: GABAPENTIN 300 MG CAP PO SCH (08:24)
[2021-12-16] MEDS: TAMSULOSIN HCL 0.4 MG CAP PO SCH (08:24)
[2021-12-16] MEDS: ROSUVASTATIN CALCIUM 20 MG TAB PO SCH (08:24)
[2021-12-16] MEDS: METOPROLOL SUCC 50MG EXT REL TAB PO SCH (08:24)
[2021-12-16] MEDS: OXcarbazepine 150 MG TABLET PO SCH (08:24)
[2021-12-16] MEDS: OLODATEROL HCL 2.5MCG/ACTUATION 60 PUFFS/INHALER INH SCH (08:25)
[2021-12-16] MEDS: hydrALAZINE TAB 50 MG TAB PO SCH (08:25)
[2021-12-16] MEDS: INSULIN ASPART PER UNIT SC SCH ×2 (08:25→12:34)
[2021-12-16] MEDS ORDERED: FUROSEMIDE 40 MG TAB PO SCH (09:00)
--- NOTE | 2021-12-16 14:00 | Discharge Summary ---
Date of Service December 16, 2021 Admission HPI Per Admitting Provider 76 YOM with medical history of: Renal cell carcinoma with solitary kidney, Right nephrectomy(2013), Afib(permanent on warfarin), HTN, HLD, CKD III, HFpEF (2020 EF 50%), chronic cough, Mitral Regurge, DMII, ANNAMARIE (CPAP),obesity, CKD, BPH. Patient comes to the EMD today for increased dyspnea, weight gain, and swelling of his legs. Patient states that this has been ongoing for the past month and progressively getting worse. He attempted to get in touch with his PCP over the past 2 weeks but without any success. He normally takes 40mg of Lasix a day but for the past 3 days he took 60mg of Lasix which he noted had helped with his swelling. Patient states that he has been more dyspneic and unable to lay flat has been sleeping in his recliner. He states he is up 50 pounds over the past month. He denies any chest pain with this or any dietary indiscretions. Patient states that he has had his current cough for over 30 years and is worse in the morning where he coughs up thick sputum with orange flecks in it and clears through the day. He reports that earlier in the month he had a MRI of his heart and CT scan of his chest completed at [facility]. He has not had any report from these scans. He is edematous up to his mid abdomen, is rate controlled with his afib and is doing well on room air. His ParaInfluenza e is positive on admission. Will provide 60mg IV Lasix now. Admit to PCU for diuresing, obtain ECHO. COVID TEST: NEGATIVE Principal Diagnosis parainfluenza pneumonitis acute on chronic diastolic heart failure le swelling and chronic venous stasis from ANNAMARIE urinary retention Discharge Exam The patient appeared stable Vital signs as documented. Lungs are clear to auscultation and appear unlabored Cardiac exam, Rhythm is regular.. No murmurs, rubs or gallops. Abdominal exam reveals normal bowel sounds, soft non tender, no masses Extremities are 2+ edematous, venous stasis changes without cellulitis Discharge Data Allergies Allergy/AdvReac Type Severity Reaction Status Date / Time amlodipine [From Norvasc] Allergy Unknown Unknown Verified 11/06/21 10:09 atorvastatin [From Lipitor] Allergy Unknown Unknown Verified 11/06/21 10:09 formoterol [From Dulera] Allergy Unknown sore throat Verified 11/06/21 10:09 mometasone furoate Allergy Unknown sore throat Verified 11/06/21 10:09 [From Dulera] adhesive tape AdvReac Intermediate Rash Verified 11/06/21 10:09 Consultations 12/13/21 19:19 ED Decision to Admit Stat Ordered Studies Chest X-Ray 12/13/21 17:51 XR chest 1V portable HISTORY: Dyspnea, cough COMPARISON: None. FINDINGS: No pneumothorax. Trace right pleural effusion. The heart is mildly enlarged. There is diffuse interstitial/vascular thickening likely representing mild interstitial pulmonary edema. Hazy appearance to the lungs could be due to the pulmonary edema or a viral pneumonia. IMPRESSION: Cardiomegaly with mild interstitial pulmonary edema and a trace right pleural effusion. Hazy appearance to the lungs could be due to the suspected pulmonary edema or possibly a viral pneumonia. ACT 112: Negative or not required by law. Electronically signed by: Osei Mcdermott M.D. 12/13/2021 6:48 PM Chest X-Ray 12/16/21 08:00 XR chest 1V portable HISTORY: Shortness of breath. COMPARISON: Chest 12/13/2021. FINDINGS: No pneumothorax. The heart remains enlarged. Mild interstitial/vascular thickening persists. There are low lung volumes. Suspect trace bilateral pleural effusions. No new focal lung consolidations. IMPRESSION: No change in the cardiomegaly and mild interstitial pulmonary edema. ACT 112: Negative or not required by law. Electronically signed by: Osei Mcdermott M.D. 12/16/2021 7:39 AM Hospital Course (1) CHF exacerbation: Acute on Chronic diastolic heart failure exacerbation typically follows with Dr. Asencio - Edema bilaterally lower extremities -Likely spurred on by his parainfluenza pneumonitis - 50 pound weight gain reported over past month -Additional dosing of Lasix given on 12/14/2021 resume usual 40 mg a day on 12/16/21 -Kidney disease stage III - Troponin negative - ECHO preserved EF no regional wall motion abnormalities - not hypoxic and not tachypneic (2) Parainfluenza: Patient with positive parainfluenza on bio fire this may be responsible for his pulmonary symptoms and chest x-ray changes conservative supportive care will be initiated wheezing despite diuresis, did add serevent, CXR on 12/16/21 without progression (3) Atrial fibrillation, permanent: Continue Metoprolol - INR 1.7 taking warfarin had a negative affect while taking Eliquis with significant hematuria - (4) Hyperlipemia: Continue statin (5) Hypertension: Continue Hydralazine 50mg PO BID Metoprolol (6) Chronic kidney disease, stage III (moderate): Chronic with solitary kidney following Rt. Nephrectomy for RCC 2013 - BOW STAPLER 1.97 and below his baseline - electrolytes stable (7) Solitary kidney, acquired: As above (8) ANNAMARIE (obstructive sleep apnea): CPAP at night - Plan pt with urinary retention, usually on flomax daily increase dose to bid, proscar continues, recommend urology follow up Total Time Total Time Spent Total Time Spent (In Minutes): It required greater than 30 minutes to prepare this patient for discharge Discharge Plan Discharge Items Patient Disposition: Home - Self-Care Reason For Visit: CHF EXACERBATION Discharge Diagnosis: parainfluenza pneumonitis LE swelling urinary retention Condition on Discharge: Fair Activity: Resume your previous activity Activity Comment: gradually increase activity level Non-emergency contact: Primary Care Provider Call non-emergency contact if: your symptoms worsen and you have a fever Follow-up/Referrals: Celine Mary M.D. [Primary Care Provider] - Diet: Low Sodium (2gm) Addtl Attending Provider Instructions: You have a viral lung infection, you will improve over the next few days, but if you feel worse please return for re evaluation you maybe infectious especially to people that have weakened systems especially for the next week you heart test shows that your heart muscle is strong, your swelling is from your sleep apnea and your body size, a low salt diet, elevation of your legs, and possibly compression wraps will be helpful, discuss these strategies with your family doctor at follow up you did have some urinary retention and we recommend you increase your tamsulosin to twice a day, but please follow up with Dr Pablo also Pending Studies at Discharge: No Stand-Alone Forms: [employer], Work/School Release, Smoking Cessation Medications and DC Order Prescriptions: Continued warfarin 2 mg tablet 2 mg PO 2XWK Protocol: Dose Management Condition: Saturday (Week One) Dose/Route: 4 mg Instruction: 1 x 4 mg tablet Condition: Saturday Dose/Route: 4 mg Instruction: 1 x 4 mg tablet Condition: Saturday Dose/Route: 8 mg Instruction: 2 x 4 mg tablets Condition: Saturday Dose/Route: 4 mg Instruction: 1 x 4 mg tablet Condition: Dose/Route: 4 mg Instruction: 1 x 4 mg tablet Condition: Saturday Dose/Route: 4 mg Instruction: 1 x 4 mg tablet Condition: Saturday Dose/Route: 4 mg Instruction: 1 x 4 mg tablet Condition: Saturday () Dose/Route: 4 mg Instruction: 1 x 4 mg tablet Condition: Saturday Dose/Route: 4 mg Instruction: 1 x 4 mg tablet Condition: Saturday Dose/Route: 6 mg Instruction: 1 x 2 mg tablet, 1 x 4 mg tablet Condition: Saturday Dose/Route: 4 mg Instruction: 1 x 4 mg tablet Condition: Dose/Route: 4 mg Instruction: 1 x 4 mg tablet Condition: Saturday Dose/Route: 4 mg Instruction: 1 x 4 mg tablet Condition: Saturday Dose/Route: 4 mg Instruction: 1 x 4 mg tablet Protocol Text: Adjustment Start Date: Saturday12/05/21 INR Value: 1.7 INR Date: 12/05/21 Rx Instructions: MOFR levothyroxine 50 mcg capsule 50 mcg PO QAM warfarin 4 mg tablet 4 mg PO 5XWK Protocol: Dose Management Condition: Saturday (Week One) Dose/Route: 4 mg Instruction: 1 x 4 mg tablet Condition: Saturday Dose/Route: 4 mg Instruction: 1 x 4 mg tablet Condition: Saturday Dose/Route: 8 mg Instruction: 2 x 4 mg tablets Condition: Saturday Dose/Route: 4 mg Instruction: 1 x 4 mg tablet Condition: Dose/Route: 4 mg Instruction: 1 x 4 mg tablet Condition: Saturday Dose/Route: 4 mg Instruction: 1 x 4 mg tablet Condition: Saturday Dose/Route: 4 mg Instruction: 1 x 4 mg tablet Condition: Saturday () Dose/Route: 4 mg Instruction: 1 x 4 mg tablet Condition: Saturday Dose/Route: 4 mg Instruction: 1 x 4 mg tablet Condition: Saturday Dose/Route: 6 mg Instruction: 1 x 2 mg tablet, 1 x 4 mg tablet Condition: Saturday Dose/Route: 4 mg Instruction: 1 x 4 mg tablet Condition: Dose/Route: 4 mg Instruction: 1 x 4 mg tablet Condition: Saturday Dose/Route: 4 mg Instruction: 1 x 4 mg tablet Condition: Saturday Dose/Route: 4 mg Instruction: 1 x 4 mg tablet Protocol Text: Adjustment Start Date: Saturday12/05/21 INR Value: 1.7 INR Date: 12/05/21 Rx Instructions: SUTUWETHSA furosemide 40 mg tablet 40 mg PO DAILY Rx Instructions: 40 mg QAM finasteride 5 mg tablet 5 mg PO DAILY Qty: 90 1RF rosuvastatin [Crestor] 20 mg tablet 20 mg PO DAILY allopurinol 100 mg tablet 100 mg PO DAILY gabapentin 300 mg capsule 300 mg PO DAILY sildenafil 100 mg tablet 100 mg PO DAILY PRN (Reason: sexual activity) Qty: 30 11RF Rx Instructions: administer 30 minutes to 4 hours before activity hydralazine 50 mg tablet 50 mg PO BID Jardiance 10 mg tablet 10 mg PO DAILY oxcarbazepine 150 mg tablet 450 mg PO AMPM metoprolol succinate 100 mg tablet extended release 24 hr 100 mg PO DAILY tamsulosin 0.4 mg capsule 0.4 mg PO DAILY Qty: 60 11RF Discharge Orders: Discharge Order (Routine); Ordered 12/16/21 Ordered By: Keven Devi/Other Patient Handouts: Heart Failure Make Changes Diet Admission Data Admit Date/Time: 12/13/21 19:58 Attending Provider: Keven Ortiz Admit Provider: Wilman Klein Primary Care Provider: Celine Mary Other Providers: Wilman Klein Other Interventions: Discharge Summary Assessment (RN) Last Done: 12/16/21 13:41 Coding Level of Care Code D/C DAY MANAGEMENT >30 MINS Diagnoses CHF exacerbation I50.9 Parainfluenza B34.8 Atrial fibrillation, permanent I48.21 Hyperlipemia E78.5 Hypertension I10 Chronic kidney disease, stage III (moderate) N18.3 Solitary kidney, acquired Z90.5 ANNAMARIE (obstructive sleep apnea) G47.33
== END 2021-12-16 14:35 | disposition home or self-care (01) | DRG 291 ==
LOC: ED 17:40 → INTOOBSV 19:58 → 2S 19:58 → SUATTDRO 19:58 → 2S 21:43